=== PATIENT | male | born 1990 | race American Indian/Alaskan Native ===

== ENCOUNTER 2017-05-18 13:34 | Emergency (ER) | payer OTHER ==
[2017-05-18] MEDS ORDERED: MOTRIN PO ONE (15:16)
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
[2017-05-18 18:13] VITALS: BP 116/75
== END 2017-05-18 18:10 | disposition home or self-care (01) ==
LOC: ED 13:34
DX: S20.211A Contusion of right front wall of thorax, initial encounter (principal); M54.5 Low back pain; V43.52XA Car driver injured in collision with other type car in traffic accident, initial encounter; Y92.488 Other paved roadways as the place of occurrence of the external cause; Y93.89 Activity, other specified; Y99.9 Unspecified external cause status
CPT/HCPCS: 72100